=== PATIENT | male | born 1995 | race Caucasian/White ===

== ENCOUNTER 2016-06-02 09:29 | Emergency (ER) | payer OTHER ==
[2016-06-02] MEDS ORDERED: Acetaminophen TAB* 325 MG PO ONE (10:42)
[2016-06-02] MEDS ORDERED: NS 0.9% 1000 ML* 1,000 ML IV ONE (10:42)
--- NOTE | 2016-06-02 10:43 | RAD ---
INDICATION: Cough and fever. COMPARISON: There are no prior studies available for comparison. TECHNIQUE: Dual-energy PA and lateral views of the chest were obtained. FINDINGS: The heart is within normal limits in size. Mediastinal and hilar contours appear within normal limits. There is a 1.1 cm nodule which projects over the right midlung only seen in the PA view suspicious for a pulmonary nodule. The lungs are otherwise clear. No pleural effusion is seen. The results of this exam were called to floor clinician. IMPRESSION: POSSIBLE RIGHT-SIDED PULMONARY NODULE. RECOMMEND A CT OF THE CHEST WITHOUT CONTRAST FOR FURTHER EVALUATION.
[2016-06-02 11:25] LABS: Hematocrit 43 % (42-52); Hemoglobin 14.3 g/dl (14.0-18.0); Mean Corpuscular HGB Conc 33 g/dl (31-36); Mean Corpuscular Hemoglobin 28 pg (27-31); Mean Corpuscular Volume 85 fL (80-94); Mean Platelet Volume 8 um3 (7.4-10.4); Red Blood Count 5.06 10^6/ul (4.0-5.4); Red Cell Distribution Width 14 % (10.5-15); White Blood Count 8.6 10^3/ul (3.5-10.8)
[2016-06-02 11:44] LABS: Albumin 4.2 g/dL (3.2-5.2); BUN/Creatinine Ratio 13.3 (8-20); Calcium 9.4 mg/dL (8.6-10.3); EGFR African American 138.4 (>60); EGFR Non-African American 107.6 (>60); Globulin 3.4 g/dL (2-4); Potassium 3.9 mmol/L (3.5-5.0); Total Protein 7.6 g/dL (6.4-8.9)
--- NOTE | 2016-06-02 13:44 | RAD ---
INDICATION: Cough and fever question nodule. COMPARISON: Chest x-ray June 02, 2016 TECHNIQUE: Axial source images were obtained from the thoracic inlet to the hemidiaphragms. Coronal and sagittal reconstructed images were acquired. The visualized neck to include the thyroid appear normal. Chest wall: There are no acute abnormalities of the bony thorax or chest wall. There is no supraclavicular, infraclavicular, or axillary lymphadenopathy. Lungs : There are no pulmonary parenchymal masses or infiltrates. The pulmonary interstitium appears normal. There are no endobronchial lesions. Cardiomediastinal structures: The heart is normal in size. There is no pericardial effusion. There is no evidence of aortic aneurysm or dissection. The pulmonary vessels appear normal. There is no mediastinal or hilar adenopathy. The esophagus appears normal. Pleura : There are no pleural-based masses or effusions. Other: There are no acute or significant CT findings of the visualized upper abdomen. IMPRESSION: NEGATIVE EXAMINATION.
[2016-06-02 14:14] VITALS: BP 128/78
--- NOTE | 2016-06-03 07:15 | ED ---
Peyton Lagos Matthew, scribed for Fabio Copeland MD on 06/02/16 at 1053 . Influenza-Like Illness - HPI Summary HPI Summary: A 21 y/o male presents to the ED with influenza like symptoms since 2 days ago. Associated symptoms include fever - 102F, headache, chills, unsteady gait, dizziness, diffuse body aches, sore throat, cough, rhinorrhea, and sinus congestion. The patient was seen 10 days ago at [facility], because of hemoptysis and his PCP with concerned for TB. At that time, he wasn't found to have TB, but was started on Augmentin, which he recently finished. 5 days ago, he spent the weekend with his boyfriend who is also ill. His symptoms began 2 days ago. He's been taking ibuprofen without relief. The patient did not receive his flu shot shot this year. - History of Current Complaint Chief Complaint: EDGeneral Time Seen by Provider: 06/02/16 10:00 Hx Obtained From: Patient Onset/Duration: Gradual Onset, Lasting Days, Still Present Severity: Moderate Associated Signs & Symptoms: Fever, T Max - 102, F/C - F, Myalgia, Cough, Sore Throat, Nasal Congestion, Headache - Allergy/Home Medications Allergies/Adverse Reactions: Allergies Allergy/AdvReac Type Severity Reaction Status Date / Time No Known Allergies Allergy Verified 06/02/16 11:15 PMH/Surg Hx/FS Hx/Imm Hx Previously Healthy: Yes Endocrine/Hematology History: Denies: Hx Diabetes Infectious Disease History: No Infectious Disease History: Denies: Traveled Outside the [place] in Last 30 Days - Family History Known Family History: Positive: Cardiac Disease, Diabetes - Social History Alcohol Use: None Hx Substance Use: No Substance Use Type: Reports: None Hx Tobacco Use: No Review of Systems Positive: Fever, Chills Eyes: Negative Positive: Sore Throat, Nasal Discharge Cardiovascular: Negative Positive: Cough Gastrointestinal: Negative Genitourinary: Negative Positive: Myalgia - diffuse body aches Skin: Negative Neurological: Other - unsteady gait; dizziness Positive: Headache Psychological: Normal All Other Systems Reviewed And Are Negative: Yes Physical Exam Triage Information Reviewed: Yes Vital Signs On Initial Exam: Initial Vitals Temp Pulse Resp BP Pulse Ox 102.3 F 101 20 135/59 100 06/02/16 09:32 06/02/16 09:32 06/02/16 09:32 06/02/16 09:32 06/02/16 09:32 Vital Signs Reviewed: Yes Appearance: Positive: Well-Nourished, Ill-Appearing Skin: Positive: Warm, Dry Head/Face: Positive: Normal Head/Face Inspection Eyes: Positive: Normal ENT: Positive: Pharyngeal erythema, Nasal congestion, Nasal drainage, Tonsillar swelling - Left sided. Negative: Muffled/hoarse voice Neck: Positive: Supple, Other: - Anterior cervical lymph node tender on the left Respiratory/Lung Sounds: Positive: Clear to Auscultation, Breath Sounds Present , Other - Wet Cough Cardiovascular: Positive: RRR Abdomen Description: Positive: Nontender, Soft Bowel Sounds: Positive: Present Musculoskeletal: Positive: Normal, Strength/ROM Intact Neurological: Positive: Alert, Oriented to Person Place, Time Psychiatric: Positive: Affect/Mood Appropriate Diagnostics - Vital Signs Vital Signs Temp Pulse Resp BP Pulse Ox 06/02/16 09:32 102.3 F 101 20 135/59 100 - Laboratory Lab Results: Lab Results 06/02/16 06/02/16 06/02/16 Range/Units 11:05 11:05 11:05 WBC 8.6 (3.5-10.8) 10^3/ul RBC 5.06 (4.0-5.4) 10^6/ul Hgb 14.3 (14.0-18.0) g/dl Hct 43 (42-52) % MCV 85 (80-94) fL MCH 28 (27-31) pg MCHC 33 (31-36) g/dl RDW 14 (10.5-15) % Plt Count 180 (150-450) 10^3/ul MPV 8 (7.4-10.4) um3 Neut % (Auto) 71.4 (38-83) % Lymph % (Auto) 19.6 L (25-47) % [place] % (Auto) 8.4 (1-9) % Eos % (Auto) 0.2 (0-6) % Baso % (Auto) 0.4 (0-2) % Absolute Neuts (auto) 6.1 (1.5-7.7) 10^3/ul Absolute Lymphs (auto) 1.7 (1.0-4.8) 10^3/ul Absolute Monos (auto) 0.7 (0-0.8) 10^3/ul Absolute Eos (auto) 0 (0-0.6) 10^3/ul Absolute Basos (auto) 0 (0-0.2) 10^3/ul Absolute Nucleated RBC 0.01 10^3/ul Nucleated RBC % 0.1 Sodium 135 (133-145) mmol/L Potassium 3.9 (3.5-5.0) mmol/L Chloride 102 (101-111) mmol/L Carbon Dioxide 27 (22-32) mmol/L Anion Gap 6 (2-11) mmol/L BUN 12 (6-24) mg/dL Creatinine 0.90 (0.67-1.17) mg/dL Est GFR ( Amer) 138.4 (>60) Est GFR (Non-Af Amer) 107.6 (>60) BUN/Creatinine Ratio 13.3 (8-20) Glucose 118 H (70-100) mg/dL Lactic Acid 1.0 (0.5-2.0) mmol/L Calcium 9.4 (8.6-10.3) mg/dL Total Bilirubin 1.00 (0.2-1.0) mg/dL AST 17 (13-39) U/L ALT 17 (7-52) U/L Alkaline Phosphatase 61 (34-104) U/L Troponin I 0.00 (<0.04) ng/mL Total Protein 7.6 (6.4-8.9) g/dL Albumin 4.2 (3.2-5.2) g/dL Globulin 3.4 (2-4) g/dL Albumin/Globulin Ratio 1.2 (1-3) Influenza A (Rapid) (Negative) Influenza B (Rapid) (Negative) Group A Strep Rapid (Negative) 06/02/16 06/02/16 Range/Units 11:06 11:11 WBC (3.5-10.8) 10^3/ul RBC (4.0-5.4) 10^6/ul Hgb (14.0-18.0) g/dl Hct (42-52) % MCV (80-94) fL MCH (27-31) pg MCHC (31-36) g/dl RDW (10.5-15) % Plt Count (150-450) 10^3/ul MPV (7.4-10.4) um3 Neut % (Auto) (38-83) % Lymph % (Auto) (25-47) % [place] % (Auto) (1-9) % Eos % (Auto) (0-6) % Baso % (Auto) (0-2) % Absolute Neuts (auto) (1.5-7.7) 10^3/ul Absolute Lymphs (auto) (1.0-4.8) 10^3/ul Absolute Monos (auto) (0-0.8) 10^3/ul Absolute Eos (auto) (0-0.6) 10^3/ul Absolute Basos (auto) (0-0.2) 10^3/ul Absolute Nucleated RBC 10^3/ul Nucleated RBC % Sodium (133-145) mmol/L Potassium (3.5-5.0) mmol/L Chloride (101-111) mmol/L Carbon Dioxide (22-32) mmol/L Anion Gap (2-11) mmol/L BUN (6-24) mg/dL Creatinine (0.67-1.17) mg/dL Est GFR ( Amer) (>60) Est GFR (Non-Af Amer) (>60) BUN/Creatinine Ratio (8-20) Glucose (70-100) mg/dL Lactic Acid (0.5-2.0) mmol/L Calcium (8.6-10.3) mg/dL Total Bilirubin (0.2-1.0) mg/dL AST (13-39) U/L ALT (7-52) U/L Alkaline Phosphatase (34-104) U/L Troponin I (<0.04) ng/mL Total Protein (6.4-8.9) g/dL Albumin (3.2-5.2) g/dL Globulin (2-4) g/dL Albumin/Globulin Ratio (1-3) Influenza A (Rapid) Positive H (Negative) Influenza B (Rapid) Negative (Negative) Group A Strep Rapid Negative (Negative) Result Diagrams: 06/02/16 11:05 06/02/16 11:05 Lab Statement: Any lab studies that have been ordered have been reviewed, and results considered in the medical decision making process. - Radiology CXR Xray Interpretation: Positive (See Comments) - IMPRESSION: POSSIBLE RIGHT-SIDED PULMONARY NODULE. RECOMMEND A CT OF THE CHEST WITHOUT CONTRAST FOR FURTHER EVALUATION. Radiology Interpretation Completed By: Radiologist - CT Chest CT CT Interpretation: No Acute Changes - IMPRESSION: NEGATIVE EXAMINATION. CT Interpretation Completed By: Radiologist Flu Symptom Course/Dx - Course Assessment/Plan: A 21 y/o male presents to the ED with influenza like symptoms since 2 days ago. Associated symptoms include fever - 102F, headache, chills, unsteady gait, dizziness, diffuse body aches, sore throat, cough, rhinorrhea, and sinus congestion. Labs were reviewed. CXR shows possible right-sided pulmonary nodule. Chest CT showed negative examination. The patient tested positive for influenza A. He will be discharged home and follow-up with his PCP. - Diagnoses Provider Diagnoses: Influenza A Discharge - Discharge Plan Condition: Stable Disposition: HOME Patient Education Materials: Influenza (ED) Forms: *Work Release Referrals: No Primary Care Phys,NOPCP [Primary Care Provider] - 4 Days Additional Instructions: Please follow-up with your primary care physician in 4 days. Please take Tylenol and ibuprofen as directed on the medication for pain and fever. The documentation as recorded by the Peyton chu Matthew accurately reflects the service I personally performed and the decisions made by me, Fabio Copeland MD.
== END 2016-06-02 14:12 | disposition home or self-care (01) ==
LOC: ED 09:29
DX: J11.1 Influenza due to unidentified influenza virus with other respiratory manifestations (principal); R50.9 Fever, unspecified; R05 Cough; J02.9 Acute pharyngitis, unspecified; R09.81 Nasal congestion; R51 Headache
CPT/HCPCS: 36415; 71020; 71250; 80053; 83605; 84484; 85025; 87502; 87651; 99283; A9270-GY

== ENCOUNTER 2016-08-03 20:09 | Emergency (ER) | payer OTHER ==
[2016-08-03] MEDS ORDERED: NS 0.9% 1000 ML* 1,000 ML IV ONE (22:12)
[2016-08-03] MEDS ORDERED: Ketorolac INJ* 30 MG/ML 1 ML VIAL IV ONE (22:12)
[2016-08-03] MEDS ORDERED: Clindamycin 900 MG IVPREMIX(* 900 MG/50 ML SDV IV ONE (22:15)
[2016-08-03] MEDS ORDERED: methylPREDNISolone SOD SUCC* 125 MG 2 ML VIAL IV ONE (22:17)
[2016-08-03 22:59] LABS: Hematocrit 44 % (42-52); Hemoglobin 14.5 g/dl (14.0-18.0); Mean Corpuscular HGB Conc 33 g/dl (31-36); Mean Corpuscular Hemoglobin 27 pg (27-31); Mean Corpuscular Volume 83 fL (80-94); Mean Platelet Volume 8 um3 (7.4-10.4); Red Cell Distribution Width 15 % (10.5-15); White Blood Count 12.2 10^3/ul (3.5-10.8)
[2016-08-03 23:02] LABS: Albumin 4.6 g/dL (3.2-5.2); BUN/Creatinine Ratio 10.8 (8-20); Calcium 10.5 mg/dL (8.6-10.3); EGFR African American 133.2 (>60); EGFR Non-African American 103.6 (>60); Globulin 4.9 g/dL (2-4); Potassium 3.7 mmol/L (3.5-5.0); Total Bilirubin 0.8 mg/dL (0.2-1.0); Total Protein 9.5 g/dL (6.4-8.9)
[2016-08-04] MEDS ORDERED: Iohexol 300* (CONTRAST) 10 ML SDV IV ONE (00:27)
[2016-08-04 02:09] VITALS: BP 128/74
--- NOTE | 2016-08-04 09:41 | RAD ---
Indication: Fever, tonsillitis, evaluate for abscess. Contrast: Administered 50.0 ml of OMNIPAQUE 300 mgi/ml CT of the neck was performed after IV contrast administration. Coronal and sagittal reconstructed images were obtained. There is enlargement of the palatine tonsils bilaterally, worse on the left than on the right. A vague hypodense area is noted in the left palatine tonsils which does not appear to be a fluid collection at this time. This may represent phlegmonous change. The adenoids are also prominent and enlarged. Nasopharynx is intact. There is edema in the left parapharyngeal space. Enlarged lymph nodes are noted along the carotid chain. Multiple lymph nodes are noted bilaterally; however, they are larger on the left than on the right. They measure up to 12 mm on the left. Inferior thyroid lobes are unremarkable. The lung apices are unremarkable. IMPRESSION: 1. Arbela tonsils appear to be enlarged bilaterally, more so on the left than on the right with phlegmonous change without discrete abscess. 2. Cervical adenopathy, worse on the left than on the right.
--- NOTE | 2016-08-04 21:20 | ED ---
Josefa Lagos Alok, scribed for Lucius Codyuel on 08/03/16 at 2220 . Throat Pain/Nasal Congestion - HPI Summary HPI Summary: 21 y/o male presents to the ED for throat and ear pain with swelling and suspicion of an abscess. Pt states he has had chronic tonsillitis for the past 2 year and since April 2016 has been sick more days than healthy. Pt states that for the last 60 days he has had constant throat pain. Pt states his symptoms are aggravated as well by seasonal allergies. Pt also complains of neck pain radiating from the throat as well as inflammation of the tonsils. Pt was last seen at [facility] earlier today who sent him here for suspicion of an abscess. Pt also c/o dysphasia and difficulty hearing. Pt states has not eaten since 1000 today and has had little fluids as well. Pt has NKDA. - History of Current Complaint Chief Complaint: EDThroatPain Time Seen by Provider: 08/03/16 21:52 Hx Obtained From: Patient Onset/Duration: Lasting Weeks, Still Present, Worse Since - last 60 days Severity: Moderate Associated Signs And Symptoms: Positive: Dysphagia Related History: Seasonal Allergies - Allergies/Home Medications Allergies/Adverse Reactions: Allergies Allergy/AdvReac Type Severity Reaction Status Date / Time No Known Allergies Allergy Verified 08/03/16 20:16 PMH/Surg Hx/FS Hx/Imm Hx Endocrine/Hematology History: Denies: Hx Diabetes Infectious Disease History: No Infectious Disease History: Denies: Traveled Outside the [place] in Last 30 Days - Family History Known Family History: Positive: Cardiac Disease, Diabetes - Social History Occupation: Employed Full-time Alcohol Use: None Hx Substance Use: No Substance Use Type: Reports: None Hx Tobacco Use: No Smoking Status (MU): Never Smoked Tobacco Review of Systems Negative: Fever Positive: Erythema - throat Positive: Sore Throat, Ear Ache, Other - dysphagia, difficulty hearing Positive: Edema - tonsils, Other - neck pain All Other Systems Reviewed And Are Negative: Yes Physical Exam Triage Information Reviewed: Yes Vital Signs On Initial Exam: Initial Vitals Temp Pulse Resp BP Pulse Ox 99.1 F 85 18 142/71 100 08/03/16 20:15 08/03/16 20:15 08/03/16 20:15 08/03/16 20:15 08/03/16 20:15 Vital Signs Reviewed: Yes Appearance: Positive: Well-Appearing, No Pain Distress Skin: Positive: Warm, Skin Color Reflects Adequate Perfusion, Dry Head/Face: Positive: Normal Head/Face Inspection Eyes: Positive: EOMI, BRETT ENT: Positive: Other - Left side tonsil swelling with tenderness and fluctuance Neck: Positive: Supple, Nontender Respiratory/Lung Sounds: Positive: Clear to Auscultation, Breath Sounds Present Cardiovascular: Positive: RRR, Pulses are Symmetrical in both Upper and Lower Extremities Abdomen Description: Positive: Nontender, Soft Bowel Sounds: Positive: Present Musculoskeletal: Positive: Normal, Strength/ROM Intact Neurological: Positive: Normal, Sensory/Motor Intact, Alert, Oriented to Person Place, Time Diagnostics - Vital Signs Vital Signs Temp Pulse Resp BP Pulse Ox 08/03/16 20:15 99.1 F 85 18 142/71 100 - Laboratory Result Diagrams: 08/03/16 22:30 08/03/16 22:30 Lab Statement: Any lab studies that have been ordered have been reviewed, and results considered in the medical decision making process. - CT Neck CT CT Interpretation: Positive (See Comments) - Findings: the bilateral palatine tonsils are enlarged left more so than right. There is a 1.5 cm phlegmonous low density area in the left palatine tonsil which has not matured into an abscess at this point. Nasopharyngeal adenoidal soft tissue is also enlarged. Inflammation involves the left parapharyngeal space. Right parapharyngeal space is normal. Edema/soft tissue thickening extends along the wall of the hypopharynx involving the left aryepiglottic fold. The epiglottic body and the right aryepiglottic fold are normal. The larynx and vocal cords are normal. Cervical airway is patent. Parotid and submandibular glads are normal. Thyroid is normal. There is a moderate level II cervical lymphadenopathy left greater than right. CT Interpretation Completed By: Radiologist Re-Evaluation - Re-Evaluation First Eval Re-Evaluation Time: 01:53 Change: Improved Comment: Pt states he feels better. EENT Course/Dx - Course Course Of Treatment: Pt came with throat pain. Lab and CT done. CT shows left tonsil enlarged no abcsess. Spoke with Dr. Box at [facility] who recommened antibiotics and steroids and to FU with his office. Pt states he feels better. - Diagnoses Provider Diagnoses: Tonsillitis - Provider Notifications Discussed Care of Patient with: Dr. Box (ENT) @ 2301 - recommended antibiotics and steroids and to FU with his office Discharge - Discharge Plan Condition: Stable Disposition: HOME Prescriptions: Clindamycin CAP* [Cleocin 150 MG CAP*] 600 mg PO QID #40 cap Methylprednisolone [Medrol Dosepak 4 MG*] 0 mg PO .SEE SANDRA INSTRUCTION #1 tab Patient Education Materials: Tonsillitis (ED) Referrals: No Primary Care Phys,NOPCP [Primary Care Provider] - Additional Instructions: Please follow up with your primary care provider. Attached is the contact info for Dr. Jose Box to follow up with as well: [phone] The documentation as recorded by the Josefa chu Alok accurately reflects the service I personally performed and the decisions made by , Norman Cody.
== END 2016-08-04 02:12 | disposition home or self-care (01) ==
LOC: ED 20:09
DX: J03.90 Acute tonsillitis, unspecified (principal); J02.9 Acute pharyngitis, unspecified; R60.0 Localized edema; M54.2 Cervicalgia
CPT/HCPCS: 36415; 70491; 80053; 85025; 85610; 85730; 87040; 99283; J1885; J2930; Q9967

== ENCOUNTER 2019-02-20 06:08 | Emergency (ER) | payer SELFPAY ==
[2019-02-20] MEDS ORDERED: Ondansetron INJ* 2 MG/ML VIAL IV ONE (06:25)
[2019-02-20] MEDS ORDERED: NS 0.9% 1000 ML** 2,000 ML IV ONE (06:25)
[2019-02-20] MEDS ORDERED: Ketorolac INJ* 30 MG/ML 1 ML VIAL IV PUSH ONE (06:26)
--- NOTE | 2019-02-20 06:35 | ED ---
GI/ HPI - HPI Summary HPI Summary: 23-year-old male presents with diarrhea for the past 3 days. He states that he started to have nausea vomiting yesterday. He has been feeling weak. No previous surgeries. did have Giardia a year ago that states this feels different. No recent travel. did not eat anything different. No one else is sick. No fevers. No urinary symptoms. No blood in his stool. Has no medical conditions. - History of Current Complaint Chief Complaint: EDNauseaVomitDiarrh Time Seen by Provider: 02/20/19 06:13 Stated Complaint: SICK PER PT Pain Intensity: 6 - Allergy/Home Medications Allergies/Adverse Reactions: Allergies Allergy/AdvReac Type Severity Reaction Status Date / Time azithromycin Allergy Unknown Verified 02/20/19 06:12 Reaction Details PMH/Surg Hx/FS Hx/Imm Hx Endocrine/Hematology History: Denies: Hx Diabetes Cardiovascular History: Denies: Hx Hypertension History: Denies: Hx Dialysis, Hx Renal Disease Infectious Disease History: No Infectious Disease History: Denies: Traveled Outside the [place] in Last 30 Days - Family History Known Family History: Positive: Cardiac Disease, Diabetes - Social History Alcohol Use: None Hx Substance Use: No Substance Use Type: Reports: None Hx Tobacco Use: No Smoking Status (MU): Never Smoked Tobacco Review of Systems Negative: Fever Negative: Chest Pain Negative: Shortness Of Breath Positive: Abdominal Pain, Vomiting, Diarrhea, Nausea All Other Systems Reviewed And Are Negative: Yes Physical Exam Triage Information Reviewed: Yes Vital Signs On Initial Exam: Initial Vitals Temp Pulse Resp BP Pulse Ox 97.3 F 89 18 143/100 100 02/20/19 06:08 02/20/19 06:08 02/20/19 06:08 02/20/19 06:08 02/20/19 06:08 Vital Signs Reviewed: Yes Appearance: Positive: Well-Appearing Skin: Positive: Warm, Dry Head/Face: Positive: Normal Head/Face Inspection Eyes: Positive: Normal, Conjunctiva Clear ENT: Positive: Pharynx normal Respiratory/Lung Sounds: Positive: Clear to Auscultation, Breath Sounds Present Cardiovascular: Positive: Normal, RRR Abdomen Description: Positive: Soft, Other: - mild diffuse abd tenderness Bowel Sounds: Positive: Present Musculoskeletal: Positive: Normal Neurological: Positive: Normal Psychiatric: Positive: Normal Procedures - Sedation Patient Received Moderate/Deep Sedation with Procedure: No Diagnostics - Vital Signs Vital Signs Temp Pulse Resp BP Pulse Ox 02/20/19 06:08 97.3 F 89 18 143/100 100 - Laboratory Result Diagrams: 02/20/19 06:33 02/20/19 06:33 Lab Statement: Any lab studies that have been ordered have been reviewed, and results considered in the medical decision making process. Re-Evaluation - Re-Evaluation First Eval Re-Evaluation Time: 07:37 Change: Improved Comment: feeling better GIGU Course/Dx - Course Course Of Treatment: 23-year-old male presents with diarrhea for the past 3 days. He states that he started to have nausea vomiting yesterday. He has been feeling weak. No previous surgeries. did have Giardia a year ago that states this feels different. No recent travel. did not eat anything different. No one else is sick. No fevers. No urinary symptoms. No blood in his stool. Has no medical conditions. On exam mild diffuse abdominal tenderness. wbc 12.4. crp normal. sodium 133 and anion gap 13 likely due to vomiting. magnesium 1.7 so gave supplement. gave fluids, zofran and toradol and feeling better. will discharge with zofran. told est care with primary. patient understand and agrees with plan. - Diagnoses Differential Diagnoses - Male: Gastroenteritis (Bacterial), Gastroenteritis ( Viral), Urinary Tract Infection Provider Diagnoses: Nausea vomiting and diarrhea, Abdominal pain Discharge ED - Sign-Out/Discharge Documenting (check all that apply): Patient Departure - Discharge Plan Condition: Good Disposition: HOME Prescriptions: Ondansetron ODT TAB* [Zofran 4 MG Odt TAB*] 4 mg PO Q6H PRN #12 tab.odt PRN Reason: Nausea Patient Education Materials: Gastroenteritis (ED) Referrals: [facility] REFERRAL [Outside] Additional Instructions: Symptoms likely due to gastroenteritis Can take Zofran every 6 hours as needed for nausea Drink small amounts of fluid as tolerated When able to eat follow BRAT diet: Bananas, rice, applesauce, toast Take ibuprofen or Tylenol for pain as needed every 6 hours establish care with primary Return to ED if develop any new or worsening symptoms - Billing Disposition and Condition Condition: GOOD Disposition: Home
[2019-02-20 06:54] LABS: Hematocrit 52 % (42-52); Mean Corpuscular HGB Conc 35 g/dL (31-36); Mean Corpuscular Hemoglobin 30 pg (27-31); Mean Corpuscular Volume 88 fL (80-94); Mean Platelet Volume 8.5 fL (7.4-10.4); Platelet Count 227 10^3/uL (150-450); Red Blood Count 5.93 10^6 /uL (4.18-5.48); Red Cell Distribution Width 13 % (10-15); White Blood Count 12.4 10^3/uL (3.5-10.8)
[2019-02-20 06:57] LABS: Albumin/Globulin Ratio 1.2 (1-3); BUN/Creatinine Ratio 17.1 (8-20); C Reactive Protein 7.12 mg/L (<8.01); Calcium 10.7 mg/dL (8.6-10.3); EGFR African American 100.2 (>60); EGFR Non-African American 82.8 (>60); Globulin 4.1 g/dL (2-4); Magnesium 1.7 mg/dL (1.9-2.7); Potassium 3.8 mmol/L (3.5-5.0); Total Bilirubin 2.1 mg/dL (0.2-1.0); Total Protein 9.1 g/dL (6.4-8.9)
[2019-02-20 07:00] LABS: ABS Eosinophils 0.1 10^3/ul (0-0.6); ABS Lymphocytes 1.8 10^3/ul (1.0-4.8); ABS Monocytes 0.6 10^3/ul (0-0.8); ABS Neutrophils 9.7 10^3/ul (1.5-7.7); Eosinophil % 0.9 %; Lymphocyte % 14.7 %; Nucleated Red Blood Cells % 0.1
[2019-02-20] MEDS ORDERED: Magnesium Chloride EC TAB* 64 MG PO ONE (07:04)
[2019-02-20] MEDS ORDERED: O ndansetron ODT 4MG 5TAB PRPK 4 MG PAK PO ONE (07:36)
[2019-02-20 07:43] VITALS: BP 139/73
== END 2019-02-20 07:54 | disposition home or self-care (01) ==
LOC: ED 06:08
DX: R19.7 Diarrhea, unspecified (principal); R11.2 Nausea with vomiting, unspecified; R10.9 Unspecified abdominal pain; Z88.1 Allergy status to other antibiotic agents
CPT/HCPCS: 36415; 80053; 83605; 83690; 83735; 85025; 86140; 96361; 96365; 96374; 96375; 99282; A9270-GY; J1885; J2405